=== PATIENT | female | born 1965 | race Caucasian/White ===

== ENCOUNTER 2017-03-20 21:04 | Emergency (ER) | payer OTHER ==
[~2017-03-20] VITALS: Ht 172.7 cm; Wt 85.2 kg
[~2017-03-20 21:04] MED LIST: ASPIRIN325 MG PO; BUTORPHANO10 MG/1 ML NS; ELAVIL100 MG PO; Flonase BOTH NARES; LOPRESSOR; LOPRESSOR25 MG PO; MEXILETINE HCL250 MG PO; STADOL; VERAPAMIL HCL; VERAPAMIL HCL120 MG PO
[2017-03-20 21:35] LABS: ADD MIUA? YES; BILIRUBIN NEGATIVE; BLOOD NEGATIVE; COLOR YELLOW ((YELLOW)); GLUCOSE (STRIP) NEGATIVE; KETONES NEGATIVE; LEUKOCYTES LARGE; NITRITE NEGATIVE; PROTEIN (STRIP) NEGATIVE; SPECIFIC GRAVITY 1.008 (1.000-1.030); UROBILINOGEN 0.2 MG/DL (0.2-1.0)
[2017-03-20 21:51] LABS: HEMATOCRIT 40.6 % (36.0-46.0); MCH 30.8 PG (29.0-34.0); MCV 96.2 FL (83-99); MEAN PLAT.VOLUME 10.1 uM^3 (9.5-12.4); PLATELET COUNT 232 K/uL (156-360); RBC DIS.WIDTH-CV 12.2 % (11.8-14.6); RBC DIS.WIDTH-SD 43.2 % (39-53); RED BLOOD COUNT 4.22 M/uL (3.80-5.20); WHITE BLOOD COUNT 7.3 K/uL (4.1-10.2)
[2017-03-20 21:58] LABS: EPITHELIAL CELLS 1+ /HPF; MUCUS NONE SEEN /LPF; RED BLOOD CELLS 0-5 /HPF (0-5); WHITE BLOOD CELLS TNTC /HPF (0-5)
[2017-03-20 21:59] LABS: BACTERIA 1+ /HPF; CASTS NONE SEEN /LPF; CRYSTALS NONE SEEN; UCUL ADDED? YES
[2017-03-20 21:59] LABS: CHLORIDE 102 mEq/L (99-109); SODIUM 140 mEq/L (136-147)
[2017-03-20 22:01] LABS: GLUCOSE 107 mg/dL (70-99)
[2017-03-20 22:02] LABS: ANION GAP 10 MEQ/L (2-14)
[2017-03-20 22:03] LABS: TOTAL BILIRUBIN 0.4 mg/dL (0.0-1.0)
[2017-03-20 22:04] LABS: ALKALINE PHOSPHATASE 81 IU/L (3-129)
[2017-03-20 22:05] LABS: GFR ESTIMATE (CALCULATED) > 59 mL/min/
[2017-03-20 22:06] LABS: UREA NITROGEN (BUN) 9 mg/dL (9-23)
[2017-03-20 22:08] LABS: LIPASE 19 U/L (1.0-51.0)
[2017-03-20 22:14] LABS: QUANTITATIVE HCG < 4.0 MIU/ML
[2017-03-20] MEDS ORDERED: KEFLEX500 MG PO (22:24)
[2017-03-20 23:29] VITALS: BP 119/76
== END 2017-03-20 23:30 | disposition home or self-care (01) ==
LOC: EXP 21:04 → EME 21:04 → EXP 23:30
PROVIDERS: Nurse Practitioner Family
DX: N39.0 Urinary tract infection, site not specified (principal); G43.909 Migraine, unspecified, not intractable, without status migrainosus
CPT/HCPCS: 80048; 80053; 81003; 83690; 84702; 85027; 87077; 87086; 87186; 99281; 99284; J0696